=== PATIENT | female | born 1945 | race Caucasian/White ===

== ENCOUNTER → 2016-08-07 | Outpatient (CLI) | payer OTHER | LOC: FIMAGING 16:13 | PROVIDERS: ATTEND Physician Assistant | DX: Z98.1 Arthrodesis status (principal) ==

== ENCOUNTER 2017-08-13 19:59 | Emergency (ER) | payer OTHER ==
--- NOTE | 2017-08-13 20:02 | EDPHY ---
H & P Time Seen by Provider: 08/13/17 20:02 HPI/ROS: CHIEF COMPLAINT: Left wrist injury HISTORY OF PRESENT ILLNESS: The patient presents the ED with complaints of left wrist injury. She fell earlier today onto an outstretched hand. She noted an obvious deformity. She denies any acute numbness or weakness. The patient sustained a superficial abrasion to her elbow. She denies additional acute complaints. The patient does have a history of bilateral hip replacements and prior cervical spine fusion. The patient is not anticoagulated. She is on no regular prescription medications. REVIEW OF SYSTEMS: A comprehensive 10 point review of systems is otherwise negative aside from elements mentioned in the history of present illness. Source: Patient Exam Limitations: No limitations - Medical/Surgical History Hx Diabetes: No Other PMH: Past medical history: Bilateral hip arthroplasty, cervical fusion - Social History Smoking Status: Never smoked - Physical Exam Exam: General Appearance: Alert, no distress Head: Atraumatic Neck: Nontender, trachea midline Respiratory: No chest wall tender, no subcutaneous air, lungs clear bilaterally Cardiovascular: Regular rate and rhythm Skin: Superficial abrasion over elbow Back: No midline T/L/S pain Extremities: Tenderness and deformity noted to the left distal radius Neurological: GCS 15, motor sensory function intact throughout the left upper extremity Constitutional: Initial Vital Signs Temperature (C) 36.8 C 08/13/17 20:04 Heart Rate 75 08/13/17 20:04 Respiratory Rate 18 08/13/17 20:04 Blood Pressure 143/95 H 08/13/17 20:04 O2 Sat (%) 98 08/13/17 20:04 O2 Delivery Mode Room Air Allergies/Adverse Reactions: codeine Allergy (Verified 08/13/17 20:08) egg Allergy (Verified 08/13/17 20:08) hydrocodone bitartrate [From Vicodin] Allergy (Verified 08/13/17 20:08) Penicillins Allergy (Verified 08/13/17 20:08) Home Medications: Medication Instructions Recorded NK [No Known Home Meds] 08/13/17 Medical Decision Making - Diagnostics Imaging Results: Imaging Impressions Wrist X-Ray 08/13/17 20:05 Impression: Acute impacted and angulated intra-articular distal radius fracture. ED Course/Re-evaluation: The patient presents to the ED with a intra-articular angulated Colles fracture. The patient underwent a hematoma block. I did reduce the fracture with improved angulation noted under fluoroscopy. Given the a intra-articular nature of the fracture it may require ORIF for further treatment. Procedure: Splint placement. A ortho glass sugar-tong splint was applied to the left upper extremity by the tech. After application of the splint I returned and re-examined the patient. The splint was adequately immobilizing the joint and distal to the splint the patient's circulation and sensation was intact. Differential Diagnosis: Differential diagnosis considered includes fracture, sprain, dislocation Departure - Departure Disposition: Home, Routine, Self-Care Clinical Impression: Colles' fracture of left radius Qualifiers: Encounter type: initial encounter Fracture type: closed Qualified Code(s): S52.532A - Colles' fracture of left radius, initial encounter for closed fracture Condition: Good Instructions: Wrist Fracture in Adults (ED) Additional Instructions: 1. Please follow up with Dr. Frazier from Orthopedic surgery. 2. Ice and Tylenol as needed for pain. 3. Return to the ED for any numbness, markedly worsening pain or other concerns. Referrals: Fly Frazier MD [Medical Doctor] - As per Instructions
[2017-08-13 20:08] VITALS: BP 143/95; PULSE 75; RESP 18; TEMP 98.2; O2SAT 98
== END 2017-08-13 20:55 | disposition home or self-care (01) ==
PROC: 0PSJXZZ Reposition Left Radius, External Approach (ICD-10-PCS; principal; 2017-08-13)
DX: S52.532A Colles' fracture of left radius, initial encounter for closed fracture (principal); W19.XXXA Unspecified fall, initial encounter
CPT/HCPCS: 25605; 73110; 99283; L3980

== ENCOUNTER → 2017-10-07 | Outpatient (CLI) | payer OTHER | LOC: FCPNEURO 21:00 | PROVIDERS: ATTEND Psychiatry & Neurology Sleep Medicine | DX: G47.33 Obstructive sleep apnea (adult) (pediatric) (principal); G47.31 Primary central sleep apnea ==

== ENCOUNTER → 2017-10-07 | Outpatient (CLI) | payer OTHER | LOC: BMCIMAGING 13:48 | PROVIDERS: ATTEND Physician Assistant | DX: Z13.820 Encounter for screening for osteoporosis (principal); M85.89 Other specified disorders of bone density and structure, multiple sites ==

== ENCOUNTER → 2018-08-04 | Outpatient (CLI) | payer OTHER | LOC: FIMAGING 12:29 | PROVIDERS: ATTEND Physician Assistant | DX: R91.8 Other nonspecific abnormal finding of lung field (principal); R05 Cough; R06.2 Wheezing ==